=== PATIENT | male | born 1970 | race Caucasian/White ===

== ENCOUNTER 2023-09-26 16:17 | Observation (INO) ==
[~2023-09-26 16:17] MED LIST: ZOSYN 3.375 GM Q8H per EXTENDED INFUSION IV SCH
[2023-09-26] MEDS ORDERED: Acetaminophen IV 1 GM/100ML 1,000 MG/100 ML BAG IV PRN (17:13)
[2023-09-26] MEDS ORDERED: Ondansetron 4 mg VIAL 2 MG/ML 2 ml VIAL IV PRN (17:13)
[2023-09-26] MEDS: Lactated Ringers 1000 ml BAG 1,000 ML IV SCH ×2 (17:26→23:51)
[2023-09-26] MEDS ORDERED: Piperacillin/Tazobac 3.375 BAG 3.375 GM/100 ML BAG IV ONE ×2 (18:00→18:18)
[2023-09-26] MEDS ORDERED: Dexamethasone IV 4 MG/ML VIAL 1 ml VIAL ONE (18:11)
[2023-09-26] MEDS ORDERED: Midazolam 2 mg/2 ml VIAL 1 mg/ml 2 ml VIAL (2 mg) ONE (18:11)
[2023-09-26] MEDS ORDERED: fentaNYL 250 mcg/5 ml 50 MCG/ML 5 ml VIAL (250 MCG) ONE (18:11)
[2023-09-26] MEDS ORDERED: Rocuronium 50 mg VIAL 10 mg/ml 5 ml VIAL (50 mg) ONE (18:11)
[2023-09-26] MEDS ORDERED: Ondansetron 4 mg VIAL 2 MG/ML 2 ml VIAL ONE (18:11)
[2023-09-26] MEDS ORDERED: Propofol 10 MG/ML 20 ML BTL ONE (18:11)
[2023-09-26] MEDS ORDERED: Lidocaine 2% PF 5 ML VIAL ONE (18:12)
[2023-09-26] MEDS ORDERED: Bupivacaine 0.25% SDV 30 ML ONE (18:41)
[2023-09-26] MEDS ORDERED: Acetaminophen IV 1 GM/100ML 1,000 MG/100 ML BAG IV ONE (20:41)
[2023-09-27] MEDS ORDERED: NS 0.9% 1,000 ML IV SCH (01:15)
[2023-09-27] MEDS: ZOSYN 3.375 GM Q8H per EXTENDED INFUSION IV SCH ×3 (01:20→17:35)
[2023-09-27 14:37] VITALS: BP 114/69
[2023-09-28] MEDS ORDERED: Nicotine PATCH 21 MG/24 HR PATCH TRANSDERM SCH (09:00)
== END 2023-09-27 16:00 | disposition home or self-care (01) ==
LOC: ED 16:17 → OR 17:42 → SSU 17:42 → OR 19:05
PROVIDERS: ADMIT Surgery; ATTEND Physician Assistant Surgical

== ENCOUNTER 2024-06-19 23:44 | Observation (INO) ==
[2024-06-20 00:47] LABS: ABS Basophils 0.2 10^3/uL (0.0-0.1); ABS Eosinophils 0.2 10^3/uL (0.0-0.5); ABS Lymphocytes 2.1 10^3/uL (1.0-4.8); ABS Monocytes 1.1 10^3/uL (0.0-1.1); ABS Neutrophils 13.9 10^3/uL (1.5-7.6); ABS Nucleated RBC 0.02 10^3/ul; Hematocrit 49.4 % (38-53); Hemoglobin 16.8 g/dL (13.2-16.3); Mean Corpuscular Hemoglobin 31.4 pg (27-33); Mean Corpuscular Hgb Conc 33.9 g/dL (31-36); Mean Corpuscular Volume 92.4 fL (80-97); Mean Platelet Volume 6.4 fL (7.5-11.2); Nucleated Red Blood Cells % 0.1 %/100WBC (0.0-0.8); Platelet Count 343 10^3/uL (150-450); Red Blood Count 5.35 10^6/uL (4.06-5.63); Red Cell Distribution Width 13.8 % (12-17); White Blood Count 17.5 10^3/uL (3.6-10.2)
[2024-06-20 01:04] LABS: Urine Appearance Clear; Urine Bilirubin Negative (Negative); Urine Blood Negative (Negative); Urine Color Light-Yellow; Urine Glucose Negative (Negative); Urine Ketones Negative (Negative); Urine Nitrite Negative (Negative); Urine Protein Trace (Negative); Urine Specific Gravity 1.024 (1.002-1.030); Urine Urobilinogen Negative (Negative); Urine pH 5.5 (5.0-8.0)
[2024-06-20 01:07] LABS: Calcium 9.3 mg/dL (8.6-10.3); Creatinine, Serum 0.86 mg/dL (0.67-1.17); Potassium 4.3 mmol/L (3.5-5.0); eGFR CKD-EPI 104.2 (>60)
[2024-06-20 01:08] LABS: Albumin 4.4 g/dL (3.2-5.2); Albumin/Globulin Ratio 1.8 (1-3); C Reactive Protein 7.99 mg/L (<8.01); Globulin 2.4 g/dL (2-4); Total Bilirubin 0.3 mg/dL (0.2-1.0); Total Protein 6.8 g/dL (6.4-8.9)
[2024-06-20] MEDS: Lactated Ringers 1000 ml BAG 1,000 ML IV ONE (01:55)
[2024-06-20] MEDS: Ondansetron 4 mg VIAL 2 MG/ML 2 ml VIAL IV ONE (02:17)
[2024-06-20] MEDS: Iohexol 350 (CONTRAST) 500 ML MDV IV ONE (03:02)
[2024-06-20] MEDS: Piperacillin/Tazobac 3.375 BAG 3.375 GM/100 ML BAG IV ONE ×2 (05:56→10:15)
[2024-06-20] MEDS: Nicotine PATCH 7 MG/24 HR PATCH TRANSDERM ONE (07:03)
[2024-06-20] MEDS: Ondansetron 4 mg VIAL 2 MG/ML 2 ml VIAL IV PRN (11:14)
[2024-06-20] MEDS: HYDROmorphone 1 MG/1 ML SYRINGE IV SLOW PU PRN (11:14)
[2024-06-20] MEDS: Lactated Ringers 1000 ml BAG 1,000 ML IV SCH ×2 (11:14→23:25)
[2024-06-20] MEDS ORDERED: Lidocaine 2% PF 5 ML VIAL ONE (16:14)
[2024-06-20] MEDS ORDERED: Ondansetron 4 mg VIAL 2 MG/ML 2 ml VIAL ONE (16:15)
[2024-06-20] MEDS ORDERED: Midazolam 2 mg/2 ml VIAL 1 mg/ml 2 ml VIAL (2 mg) ONE (16:15)
[2024-06-20] MEDS ORDERED: Dexamethasone IV 4 MG/ML VIAL 1 ml VIAL ONE (16:15)
[2024-06-20] MEDS ORDERED: Rocuronium 50 mg VIAL 10 mg/ml 5 ml VIAL (50 mg) ONE ×2 (16:15→17:29)
[2024-06-20] MEDS ORDERED: fentaNYL 250 mcg/5 ml 50 MCG/ML 5 ml VIAL (250 MCG) ONE (16:15)
[2024-06-20] MEDS ORDERED: Propofol 10 MG/ML 20 ML BTL ONE (16:15)
[2024-06-20] MEDS ORDERED: Bupivacaine 0.25% EPI 200,000 30 ML SDV ONE (16:16)
[2024-06-20] MEDS ORDERED: Acetaminophen IV 1 GM/100ML 1,000 MG/100 ML BAG IV ONE (17:06)
[2024-06-20] MEDS ORDERED: HYDROmorphone 0.5 MG/0.5 ML SYRINGE ONE (17:21)
[2024-06-20] MEDS ORDERED: Metoclopramide 5 MG/ML VIAL (10 mg) IV PRN (19:30)
[2024-06-20] MEDS ORDERED: Ondansetron 4 mg VIAL 2 MG/ML 2 ml VIAL IV PRN (19:30)
[2024-06-20] MEDS ORDERED: Naloxone 0.4 mg VIAL 0.4 mg/ml 1 ml VIAL IV PRN (19:30)
[2024-06-20] MEDS ORDERED: fentaNYL 100 mcg/2 ml 50 MCG/ML VIAL ONE (19:36)
[2024-06-20] MEDS: fentaNYL 100 mcg/2 ml 50 MCG/ML VIAL IV PRN (19:39)
[2024-06-20] MEDS ORDERED: NS 0.45% 1000 ml BAG 1,000 ML IV SCH (20:00)
[2024-06-20] MEDS: HYDROmorphone 0.5 MG/0.5 ML SYRINGE IV SLOW PU PRN (23:21)
[2024-06-20] MEDS: Acetaminophen IV 1 GM/100ML 1,000 MG/100 ML BAG IV ONE (23:25)
[2024-06-20] MEDS: Buffered Lidocaine 1% SYRIN 1 ml INTRADERM ONE (23:46)
[2024-06-20] MEDS: Scopolamine 1 mg/72hr PATCH TRANSDERM ONE (23:47)
[2024-06-21 06:21] LABS: ABS Monocytes 0.9 10^3/uL (0.0-1.1); ABS Neutrophils 15.4 10^3/uL (1.5-7.6); Hematocrit 40.8 % (38-53); Hemoglobin 13.7 g/dL (13.2-16.3); Lymphocyte % 5.5 %; Mean Corpuscular Hemoglobin 31.5 pg (27-33); Mean Corpuscular Hgb Conc 33.6 g/dL (31-36); Mean Corpuscular Volume 93.9 fL (80-97); Mean Platelet Volume 6.5 fL (7.5-11.2); Platelet Count 272 10^3/uL (150-450); Red Blood Count 4.34 10^6/uL (4.06-5.63); White Blood Count 17.3 10^3/uL (3.6-10.2)
[2024-06-21 06:33] LABS: Albumin 3.8 g/dL (3.2-5.2); Calcium 8.6 mg/dL (8.6-10.3); Creatinine, Serum 0.86 mg/dL (0.67-1.17); Globulin 1.9 g/dL (2-4); Potassium 4.7 mmol/L (3.5-5.0); Total Bilirubin 0.7 mg/dL (0.2-1.0); Total Protein 5.7 g/dL (6.4-8.9); eGFR CKD-EPI 104.2 (>60)
[2024-06-21] MEDS: Nicotine PATCH 14 MG/24 HR PATCH TRANSDERM SCH (08:42)
[2024-06-21] MEDS: Enoxaparin 40 MG/0.4 ML SYR SUBCUT SCH (08:46)
[2024-06-22 05:22] VITALS: BP 107/74
== END 2024-06-22 09:20 | disposition home or self-care (01) ==
LOC: EDHOLD 23:44 → ED 23:44 → AA 06-20 13:58 → SSU 06-20 21:39
PROVIDERS: ADMIT Surgery; ATTEND Surgery